=== PATIENT | male | born 1985 ===

== ENCOUNTER 2016-07-24 16:31 | Emergency (ER) | payer OTHER ==
[2016-07-24 16:33] VITALS: BMI 28.0
[2016-07-24 16:37] VITALS: TEMP 98.1
--- NOTE | 2016-07-24 16:46 | ED PDOC ---
Arrival/HPI - General Chief Complaint: Lower Extremity Problem/Injury Time Seen by Provider: 07/24/16 16:35 Historian: Patient - History of Present Illness Narrative History of Present Illness (Text): 07/24/16 16:50 30yr old male presents today with blisters to the bottom of both feet. pt states he is homeless and has been walking around with feet in the same shoes for the past few days and developed painful blisters on the bottom of the feet. pt denies fever/chills. denies numbness, weakness, tingling in the extremity. pt states he has sharp burning pain to the plantar aspect of the feet when we walks. no medications have been taken for pain. no other complaints. Severity Level: 8 (when walking) Past Medical History - Provider Review Nursing Documentation Reviewed: Yes - Travel History Have you recently traveled outside [place] w/in the past 3 mons?: No - Infectious Disease Hx of Infectious Diseases: None - Tetanus Immunization Tetanus Immunization: Unknown - Psychiatric Hx Substance Use: No - Anesthesia Hx Anesthesia: No Family/Social History - Physician Review Nursing Documentation Reviewed: Yes Family/Social History: Unknown Family HX Smoking Status: Heavy Smoker > 10 Cigarettes Daily Hx Alcohol Use: No Hx Substance Use: No Allergies/Home Meds Allergies/Adverse Reactions: Allergies shellfish derived Allergy (Verified 07/24/16 16:33) ANAPHYLAXIS Review of Systems - Review of Systems Constitutional: absent: Fatigue, Fevers Respiratory: absent: SOB, Cough Cardiovascular: absent: Chest Pain, Palpitations Gastrointestinal: absent: Abdominal Pain, Diarrhea, Nausea, Vomiting Genitourinary Male: absent: Dysuria Musculoskeletal: Arthralgias Skin: Other (blisters to plantar aspect of both feet) Psychiatric: absent: Anxiety, Depression Physical Exam Vital Signs Reviewed: Yes Vital Signs Temp Pulse Resp BP Pulse Ox 07/24/16 16:32 98.1 F 100 H 18 129/82 98 Temperature: Afebrile Blood Pressure: Normal Pulse: Tachycardic Respiratory Rate: Normal Appearance: Positive for: Well-Appearing, Non-Toxic, Comfortable Pain Distress: None Mental Status: Positive for: Alert and Oriented X 3 - Systems Exam Head: Present: Atraumatic Mouth: Present: Moist Mucous Membranes Respiratory/Chest: Present: Clear to Auscultation, Good Air Exchange. No: Respiratory Distress, Accessory Muscle Use Cardiovascular: Present: Regular Rate and Rhythm, Normal S1, S2. No: Murmurs Lower Extremity: Present: NORMAL PULSES, Normal ROM, Tenderness (bilateral feet ; there are multiple blisters noted to the plantar aspect of the feet located around the ball of the foot; no surrounding erythema; no edema, sensation and distal pulses intact; cap refill <2. ), Neurovascularly Intact, Capillary Refill < 2 s. No: CALF TENDERNESS, Swelling, Erythema, Deformity Neurological: Present: GCS=15 Skin: Present: Warm, Dry Psychiatric: Present: Alert, Oriented x 3 Medical Decision Making ED Course and Treatment: 07/24/16 16:54 30-year-old male with blisters to the plantar aspect of both feet bilaterally with slight maceration. No signs of infection Toradol given IM for pain Advised applying baby powder frequently and keeping the feet dry. Advise using Lotrimin cream twice daily between the toes. Advised follow-up with the group billing coordinator within the next 2 days. Advised immediate return if symptoms worsen or persist or if new concerning symptoms develop Patient verbalizes understanding of discharge instructions and need for immediate followup. Impression: Blisters, foot, bilaterally motrin every 6 hours as needed for pain lotrimin apply twice daily to areas between toes apply baby powder to help keep area dry follow up with the group billing coordinator within the next 2 days. follow up with the primary care physician within the next 2 days return if symptoms worsen,persist or if new symptoms develop - Medication Orders Current Medication Orders: Ketorolac Tromethamine (Toradol) 60 mg IM STAT STA Stop: 07/24/16 16:43 Disposition/Present on Arrival - Present on Arrival Any Indicators Present on Arrival: No History of DVT/PE: No History of Uncontrolled Diabetes: No Urinary Catheter: No History of Decub. Ulcer: No History Surgical Site Infection Following: None - Disposition Have Diagnosis and Disposition been Completed?: Yes Diagnosis: Blister of foot Disposition: HOME/ ROUTINE Disposition Time: 16:42 Patient Plan: Discharge Condition: GOOD Discharge Instructions (ExitCare): Blister (ED) Additional Instructions: motrin every 6 hours as needed for pain lotrimin apply twice daily to areas between toes apply baby powder to help keep area dry follow up with the group billing coordinator within the next 2 days. follow up with the primary care physician within the next 2 days return if symptoms worsen,persist or if new symptoms develop. Prescriptions: Clotrimazole 1% Cream [Lotrimin 1%] 1 appl TP BID #1 tube Ibuprofen [Motrin] 600 mg PO Q6H PRN #20 tab PRN Reason: pain/fever reduction Referrals: Anabella Sousa DPM [Staff Provider] - Follow up with primary Veronika Leigh DPM [Staff Provider] - Follow up with primary Forms: WORK NOTE
[2016-07-24 17:13] VITALS: BP 128/80; PULSE 98; RESP 17; O2SAT 99
== END 2016-07-24 17:12 | disposition home or self-care (01) ==
LOC: ED 16:31
DX: S90.821A Blister (nonthermal), right foot, initial encounter (principal); S90.822A Blister (nonthermal), left foot, initial encounter; X58.XXXA Exposure to other specified factors, initial encounter; Y93.89 Activity, other specified; Y92.89 Other specified places as the place of occurrence of the external cause
CPT/HCPCS: 96372; 99284; J1885

== ENCOUNTER 2016-08-10 14:28 | Emergency (ER) | payer OTHER ==
[2016-08-10 14:29] VITALS: BMI 28.0
[2016-08-10 14:55] VITALS: RESP 16
--- NOTE | 2016-08-10 15:05 | ED PDOC ---
Arrival/HPI - General Chief Complaint: Chest Pain Time Seen by Provider: 08/10/16 14:50 Historian: Patient - History of Present Illness Narrative History of Present Illness (Text): 08/10/16 15:06 A 30 year old male, who denies any past medical history, presents to the emergency department complaining of chest pain for that past 3- 4 days. Patient notes pain is more on the right side and comes and goes, lasting about 2 minutes. Pain is worse when stressed out. Patient currently denies having any chest pain. Patient reports back pain, shortness of breath and some fatigue but denies any other complaints at this time. Denies any recent travels, trauma or drug use. Time/Duration: < week Symptom Onset: Sudden Symptom Course: Unchanged Context: Home Past Medical History - Provider Review Nursing Documentation Reviewed: Yes - Infectious Disease Hx of Infectious Diseases: None - Tetanus Immunization Tetanus Immunization: Unknown - Cardiac Hx Cardiac Disorders: No - Pulmonary Hx Respiratory Disorders: No - Neurological Hx Neurological Disorder: No - HEENT Hx HEENT Disorder: No - Renal Hx Renal Disorder: No - Endocrine/Metabolic Hx Endocrine Disorders: No - Hematological/Oncological Hx Blood Disorders: No - Integumentary Hx Dermatological Disorder: No - Musculoskeletal/Rheumatological Hx Musculoskeletal Disorders: Yes Hx Back Pain: Yes - Gastrointestinal Hx Gastrointestinal Disorders: No - Genitourinary/Gynecological Hx Genitourinary Disorders: No - Psychiatric Hx Psychophysiologic Disorder: No Hx Substance Use: No - Anesthesia Hx Anesthesia: No Family/Social History - Physician Review Nursing Documentation Reviewed: Yes Family/Social History: No Known Family HX Smoking Status: Heavy Smoker > 10 Cigarettes Daily Hx Alcohol Use: No Hx Substance Use: No Allergies/Home Meds Allergies/Adverse Reactions: Allergies shellfish derived Allergy (Verified 08/10/16 14:31) ANAPHYLAXIS Home Medications: Home Meds Medication Instructions Recorded Confirmed No Known Home Med 08/10/16 08/10/16 Review of Systems - Physician Review All systems were reviewed & negative as marked: Yes - Review of Systems Constitutional: Fatigue Respiratory: SOB Cardiovascular: Chest Pain Musculoskeletal: Back Pain Physical Exam Vital Signs Reviewed: Yes Vital Signs Temp Pulse Resp BP Pulse Ox 08/10/16 16:57 98 F 76 16 106/58 L 98 08/10/16 14:37 98.4 F 105 H 16 123/67 99 Temperature: Afebrile Blood Pressure: Normal Pulse: Tachycardic Respiratory Rate: Normal Appearance: Positive for: Well-Appearing, Non-Toxic, Comfortable Pain Distress: None Mental Status: Positive for: Alert and Oriented X 3 - Systems Exam Head: Present: Atraumatic, Normocephalic Pupils: Present: PERRL Extroacular Muscles: Present: EOMI Conjunctiva: Present: Normal Mouth: Present: Moist Mucous Membranes Neck: Present: Normal Range of Motion Respiratory/Chest: Present: Clear to Auscultation, Good Air Exchange, Other ( reproducible pain to palpation of anterior chest wall). No: Respiratory Distress, Accessory Muscle Use Cardiovascular: Present: Tachycardic. No: Murmurs Abdomen: Present: Normal Bowel Sounds. No: Tenderness, Distention, Peritoneal Signs Back: Present: Normal Inspection Upper Extremity: Present: Normal Inspection. No: Cyanosis, Edema Lower Extremity: Present: Normal Inspection. No: Edema Neurological: Present: GCS=15, CN II-XII Intact, Speech Normal Skin: Present: Warm, Dry, Normal Color. No: Rashes Psychiatric: Present: Alert, Oriented x 3, Normal Insight, Normal Concentration Medical Decision Making ED Course and Treatment: 08/10/16 15:03 EKG: Ordered, reviewed, and independently interpreted the EKG. Rate : 93 BPM Rhythm : NSR Interpretation : Normal axis, Normal intervals, No acute ischemia Comparison : No previous EKG for comparison. chest xray: Creator : Noelle Mckinnon MD 08/10/2016 15:59 FINDINGS: LUNGS: No focal consolidation. Please note that chest x-ray has limited sensitivity for the detection of pulmonary masses. PLEURA: No significant pleural effusion identified. No definite pneumothorax . CARDIOVASCULAR: The cardiomediastinal silhouette appears within normal limits of size. OSSEOUS STRUCTURES: No acute osseous abnormality identified. VISUALIZED UPPER ABDOMEN: Unremarkable. IMPRESSION: No focal consolidation, significant pleural effusion, or definite pneumothorax identified. - Lab Interpretations Lab Results: 08/10/16 14:45 08/10/16 14:45 Lab Results 08/10/16 14:45: Sodium 141, Potassium 3.9, Chloride 106, Carbon Dioxide 28, Anion Gap 11, BUN 12, Creatinine 0.8, Est GFR ( Amer) > 60, Est GFR (Non- Af Amer) > 60, Random Glucose 82, Calcium 9.2, Total Bilirubin 0.4, AST 45, ALT 33, Alkaline Phosphatase 55, Troponin I < 0.01, Total Protein 7.2, Albumin 4.0, Globulin 3.2, Albumin/Globulin Ratio 1.3 08/10/16 14:45: WBC 8.4, RBC 5.39, Hgb 11.1 L, Hct 33.6 L, MCV 62.3 L, MCH 20.6 L, MCHC 33.0, RDW 16.2 H, Plt Count 260, MPV 9.6, Gran % 67.9, Lymph % (Auto) 22.8, [place] % (Auto) 7.0 H, Eos % (Auto) 1.9, Baso % (Auto) 0.4, Gran # 5.69, Lymph # 1.9, [place] # 0.6, Eos # 0.2, Baso # 0.03 I have reviewed the lab results: Yes - RAD Interpretation Radiology Orders: 08/10/16 14:52 CHEST TWO VIEWS (PA/LAT) [RAD] Stat - EKG Interpretation Interpreted by ED Physician: Yes Type: 12 lead EKG - Medication Orders Current Medication Orders: Discontinued Medications Ketorolac Tromethamine (Toradol) 10 mg IVP STAT STA Stop: 08/10/16 14:52 Last Admin: 08/10/16 15:24 Dose: 10 mg - Scribe Statement The provider has reviewed the documentation as recorded by the [place] [facility] Provider Scribe Attestation: All medical record entries made by the Marvelibmaude were at my direction and personally dictated by me. I have reviewed the chart and agree that the record accurately reflects my personal performance of the history, physical exam, medical decision making, and the department course for this patient. I have also personally directed, reviewed, and agree with the discharge instructions and disposition. Disposition/Present on Arrival - Present on Arrival Any Indicators Present on Arrival: No History of DVT/PE: No History of Uncontrolled Diabetes: No Urinary Catheter: No History of Decub. Ulcer: No History Surgical Site Infection Following: None - Disposition Have Diagnosis and Disposition been Completed?: Yes Diagnosis: Chest pain Disposition: HOME/ ROUTINE Disposition Time: 16:43 Condition: STABLE Discharge Instructions (ExitCare): Chest Pain (ED) Additional Instructions: Please follow up with your doctor. Return to the ER for any worsening symptoms or for any other concerns. Referrals: [facility] [place] [Outside] - Follow up with primary
[2016-08-10 15:17] LABS: ADD MANUAL DIFF? NO
[2016-08-10 15:20] LABS: BASO # 0.03 K/mm3 (0.0-2.0); BASO % 0.4 % (0.0-3.0); EOS # 0.2 (0.0-0.7); EOS % 1.9 % (1.5-5.0); GRAN # 5.69 (1.4-6.5); GRAN % 67.9 % (50.0-68.0); HEMATOCRIT 33.6 % (42.0-52.0); LYMPH # 1.9 (1.2-3.4); LYMPH % 22.8 % (22.0-35.0); MEAN CELL VOLUME 62.3 fL (80.0-105.0); MEAN CORPUSCULAR HEMOGLOBIN 20.6 pg (25.0-35.0); MEAN PLATELET VOLUME 9.6 fl (7.0-11.0); MONO # 0.6 (0.1-0.6); PLATELET COUNT 260 10^3/uL (120.0-450.0); RED CELL DISTRIBUTION WIDTH 16.2 % (11.5-14.5); WHITE BLOOD COUNT 8.4 10^3/ul (4.5-11.0)
[2016-08-10 15:45] LABS: ALB/GLOB RATIO 1.3 (1.1-1.8); ALKALINE PHOSPHATASE 55 U/L (38-133); ALT/SGPT 33 U/L (7-56); AST/SGOT 45 U/L (15-59); BILIRUBIN,TOTAL 0.4 mg/dL (0.2-1.3); BLOOD UREA NITROGEN 12 mg/dL (7-21); CALCIUM 9.2 mg/dL (8.4-10.5); CARBON DIOXIDE 28 mmol/L (21-33); CHLORIDE 106 mmol/L (98-107); GFR AFRICAN-AMERICAN > 60; GLUCOSE,RANDOM 82 mg/dL (70-110); POTASSIUM 3.9 mmol/L (3.6-5.0); SODIUM 141 mmol/L (132-148); TOTAL PROTEIN 7.2 g/dL (5.8-8.3)
--- NOTE | 2016-08-10 15:57 | RAD ---
HISTORY: cp COMPARISON: None available. TECHNIQUE: Chest PA and lateral FINDINGS: LUNGS: No focal consolidation. Please note that chest x-ray has limited sensitivity for the detection of pulmonary masses. PLEURA: No significant pleural effusion identified. No definite pneumothorax . CARDIOVASCULAR: The cardiomediastinal silhouette appears within normal limits of size. OSSEOUS STRUCTURES: No acute osseous abnormality identified. VISUALIZED UPPER ABDOMEN: Unremarkable. OTHER FINDINGS: None. IMPRESSION: No focal consolidation, significant pleural effusion, or definite pneumothorax identified.
[2016-08-10 16:13] LABS: TROPONIN I < 0.01 ng/mL
[2016-08-10 16:58] VITALS: BP 106/58; PULSE 76; TEMP 98; O2SAT 98
--- NOTE | 2016-08-12 00:16 | CARD ---
APPROVED REPORT EKG Measurement Heart [id number] <Conclusion> Normal sinus rhythm Possible Left atrial enlargement Borderline ECG
== END 2016-08-10 17:01 | disposition home or self-care (01) ==
LOC: ED 14:28
DX: R07.9 Chest pain, unspecified (principal)
CPT/HCPCS: 71020; 80053; 84484; 85025; 93005; 96374; 99283; J1885

== ENCOUNTER 2016-08-19 08:35 | Emergency (ER) | payer OTHER ==
[2016-08-19 08:35] VITALS: BMI 28.0
[2016-08-19 08:51] VITALS: TEMP 98.2; O2SAT 100
--- NOTE | 2016-08-19 09:23 | ED PDOC ---
Arrival/HPI - General Chief Complaint: Back Pain Time Seen by Provider: 08/19/16 09:05 Historian: Patient - History of Present Illness Narrative History of Present Illness (Text): 08/19/16 09:18 30yo male with history of chronic back pain present with complaint of crampy upper back pain. Notes that is the same type of back pain he have had for years from his previous job. states his recent job requires standing most of the time and he noticed worsening of the pain. States he was seeing Orthopedist in the past, but have not seen any recently. He has been taking OTC Aleve without relieve. Denies trauma, focal weakness, urinary/fecal incontinence, saddle anesthesia, abdominal pain, any other complaint. Past Medical History - Provider Review Nursing Documentation Reviewed: Yes - Infectious Disease Hx of Infectious Diseases: None - Tetanus Immunization Tetanus Immunization: Unknown - Cardiac Hx Cardiac Disorders: No - Pulmonary Hx Respiratory Disorders: No - Neurological Hx Neurological Disorder: No - HEENT Hx HEENT Disorder: No - Renal Hx Renal Disorder: No - Endocrine/Metabolic Hx Endocrine Disorders: No - Hematological/Oncological Hx Blood Disorders: No - Integumentary Hx Dermatological Disorder: No - Musculoskeletal/Rheumatological Hx Musculoskeletal Disorders: Yes Hx Back Pain: Yes - Gastrointestinal Hx Gastrointestinal Disorders: No - Genitourinary/Gynecological Hx Genitourinary Disorders: No - Psychiatric Hx Psychophysiologic Disorder: Yes Hx Depression: Yes Hx Substance Use: No - Anesthesia Hx Anesthesia: No Family/Social History - Physician Review Nursing Documentation Reviewed: Yes Family/Social History: Unknown Family HX Smoking Status: Heavy Smoker > 10 Cigarettes Daily Hx Alcohol Use: No Hx Substance Use: No Allergies/Home Meds Allergies/Adverse Reactions: Allergies shellfish derived Allergy (Verified 08/19/16 08:50) ANAPHYLAXIS Review of Systems - Physician Review All systems were reviewed & negative as marked: Yes - Review of Systems Constitutional: Normal Eyes: Normal ENT: Normal Respiratory: Normal Cardiovascular: Normal Gastrointestinal: Normal Genitourinary Male: Normal Musculoskeletal: Back Pain Skin: Normal Neurological: Normal Endocrine: Normal Hemo/Lymphatic: Normal Psychiatric: Normal Physical Exam Vital Signs Reviewed: Yes Vital Signs Temp Pulse Resp BP Pulse Ox 08/19/16 08:50 98.2 F 90 16 118/76 100 Temperature: Afebrile Blood Pressure: Normal Pulse: Regular Respiratory Rate: Normal Appearance: Positive for: Well-Appearing, Non-Toxic, Comfortable Pain Distress: None Mental Status: Positive for: Alert and Oriented X 3 - Systems Exam Head: Present: Atraumatic, Normocephalic Pupils: Present: PERRL Extroacular Muscles: Present: EOMI Conjunctiva: Present: Normal Mouth: Present: Moist Mucous Membranes Neck: Present: Normal Range of Motion Respiratory/Chest: Present: Clear to Auscultation, Good Air Exchange. No: Respiratory Distress, Accessory Muscle Use Cardiovascular: Present: Regular Rate and Rhythm, Normal S1, S2. No: Murmurs Abdomen: Present: Normal Bowel Sounds. No: Tenderness, Distention, Peritoneal Signs Back: Present: Midline Tenderness (Upper mid back), Paraspinal Tenderness ( Parathoracic area), Pain with Leg Raise (LEft leg) Upper Extremity: Present: Normal Inspection. No: Cyanosis, Edema Lower Extremity: Present: Normal Inspection. No: Edema Neurological: Present: GCS=15, CN II-XII Intact, Speech Normal Skin: Present: Warm, Dry, Normal Color. No: Rashes Psychiatric: Present: Alert, Oriented x 3, Normal Insight, Normal Concentration Medical Decision Making ED Course and Treatment: 08/19/16 09:24 PT in ED for acute on chronic crampy back pain. He was neurological intact. Ambulatory with a steady gait. Toradol and Valium was ordered Will re evaluate 08/19/16 09:47 On re evaluation pt states he feels better. He will be DC home with Naprosyn and flexeril. Referred to ortho. TRT ED for any new or worsening symptoms. - Medication Orders Current Medication Orders: Discontinued Medications Cyclobenzaprine HCl (Flexeril) 5 mg PO STAT STA Stop: 08/19/16 09:18 Ketorolac Tromethamine (Toradol) 60 mg IM STAT STA Stop: 08/19/16 09:18 Disposition/Present on Arrival - Present on Arrival Any Indicators Present on Arrival: No History of DVT/PE: No History of Uncontrolled Diabetes: No Urinary Catheter: No History of Decub. Ulcer: No History Surgical Site Infection Following: None - Disposition Have Diagnosis and Disposition been Completed?: Yes Diagnosis: Back pain Disposition: HOME/ ROUTINE Disposition Time: 09:50 Patient Plan: Discharge Patient Problems: Current Active Problems Problem Status Onset Back pain Acute Condition: STABLE Discharge Instructions (ExitCare): Chronic Back Pain (ED) Additional Instructions: Follow up with your Doctor/Orthopedist Return to ED for any new or worsening symptoms Prescriptions: Cyclobenzaprine [Cyclobenzaprine HCl] 10 mg PO TID #12 tab Naproxen [Naprosyn] 500 mg PO BID #20 tablet Referrals: PCP,NO [Primary Care Provider] - Follow up with primary Forms: WORK NOTE
[2016-08-19 10:11] VITALS: BP 115/84; PULSE 84; RESP 17
== END 2016-08-19 10:14 | disposition home or self-care (01) ==
LOC: ED 08:35
DX: M54.9 Dorsalgia, unspecified (principal)
CPT/HCPCS: 96372; 99282; J1885

== ENCOUNTER 2016-09-17 09:18 | Emergency (ER) | payer OTHER ==
[2016-09-17 09:19] VITALS: BMI 28.0
[2016-09-17 09:23] VITALS: RESP 18
--- NOTE | 2016-09-17 11:10 | CT ---
PROCEDURE: CT HEAD WITHOUT CONTRAST. HISTORY: head injury s/p syncope r/o fx r/o ich COMPARISON: None available. TECHNIQUE: Axial computed tomography images were obtained through the head/brain without intravenous contrast. Radiation dose: Total exam DLP = 724 mGy-cm. This CT exam was performed using one or more of the following dose reduction techniques: Automated exposure control, adjustment of the mA and/or kV according to patient size, and/or use of iterative reconstruction technique. FINDINGS: HEMORRHAGE: No intracranial hemorrhage. BRAIN: No mass effect or edema. No atrophy or chronic microvascular ischemic changes. VENTRICLES: Unremarkable. No hydrocephalus. CALVARIUM: Unremarkable. PARANASAL SINUSES: Large left maxillary sinus retention cyst nearly completely opacifying the left maxillary sinus. No sinus wall remodeling or expansion suggested MASTOID AIR CELLS: Unremarkable as visualized. No inflammatory changes. OTHER FINDINGS: None. IMPRESSION: No calvarial fracture. No intracranial hemorrhage. Or mass effect. Incidentally noted is a large left maxillary sinus retention cyst at least 3.5 cm
[2016-09-17 11:18] LABS: URINE BILIRUBIN NEGATIVE (NEGATIVE); URINE BLOOD NEGATIVE (NEGATIVE); URINE GLUCOSE (UA) NEGATIVE (NEGATIVE); URINE LEUKOCYTE ESTERASE NEGATIVE Leu/uL (NEGATIVE); URINE NITRATE NEGATIVE (NEGATIVE); URINE PROTEIN NEGATIVE mg/dL (<30 mg/dL); URINE UROBILINOGEN 0.2 E.U./dL (<1 E.U./dL)
[2016-09-17 11:19] LABS: URINE APPEARANCE CLEAR (CLEAR); URINE COLOR STRAW (YELLOW)
[2016-09-17 11:21] LABS: BASO # 0.03 K/mm3 (0.0-2.0); BASO % 0.3 % (0.0-3.0); EOS % 0.3 % (1.5-5.0); GRAN # 8.31 (1.4-6.5); GRAN % 76.7 % (50.0-68.0); HEMOGLOBIN 12.5 gm/dL (14.0-18.0); LYMPH % 18.1 % (22.0-35.0); MEAN CELL VOLUME 62.2 fL (80.0-105.0); MEAN CORPUSCULAR HEMOGLOBIN 20.9 pg (25.0-35.0); MEAN CORPUSCULAR HGB CONC 33.6 g/dl (31.0-37.0); MEAN PLATELET VOLUME 9.3 fl (7.0-11.0); MONO # 0.5 (0.1-0.6); MONO % 4.6 % (1.0-6.0); PLATELET COUNT 270 10^3/uL (120.0-450.0); RBC 5.98 10^6/uL (3.5-6.1); RED CELL DISTRIBUTION WIDTH 15.8 % (11.5-14.5); WHITE BLOOD COUNT 10.8 10^3/ul (4.5-11.0)
--- NOTE | 2016-09-17 11:24 | ED PDOC ---
Arrival/HPI - General Chief Complaint: Syncope Time Seen by Provider: 09/17/16 09:42 Historian: Patient, EMS - History of Present Illness Narrative History of Present Illness (Text): 09/17/16 10:40 Jaspreet Porter is a 30 year old male, who is brought in by EMS after experiencing a syncopal episode, prior to arrival at his job. Patient states that before the loss of consciousness, he felt dizziness, lightheadedness, and chest discomfort. He reports that once he woke up he believes he hurt his head and felt neck pain. Patient notes that he has not been eating sufficient lately because he cannot afford food. Patient also reports that he currently feels weak , but denies current chest pain, shortness of breath, headache, nausea, vomiting , diarrhea, fever, chills, cough, visual changes, tongue biting, or other complaints. Time/Duration: Prior to Arrival Symptom Onset: Sudden Symptom Course: Unchanged Activities at Onset: Light Modifying Factors (Text): None Context: Work Associated Symptoms (Text): prior to syncopal episode patient felt dizziness, lightheadedness, and chest discomfort. Currently he feels weak Past Medical History - Provider Review Nursing Documentation Reviewed: Yes - Infectious Disease Hx of Infectious Diseases: None - Tetanus Immunization Tetanus Immunization: Unknown - Cardiac Hx Cardiac Disorders: No - Pulmonary Hx Respiratory Disorders: No - Neurological Hx Neurological Disorder: Yes Hx Syncope: Yes - HEENT Hx HEENT Disorder: No - Renal Hx Renal Disorder: No - Endocrine/Metabolic Hx Endocrine Disorders: No - Hematological/Oncological Hx Blood Disorders: No - Integumentary Hx Dermatological Disorder: No - Musculoskeletal/Rheumatological Hx Musculoskeletal Disorders: Yes Hx Back Pain: Yes - Gastrointestinal Hx Gastrointestinal Disorders: No - Genitourinary/Gynecological Hx Genitourinary Disorders: No - Psychiatric Hx Psychophysiologic Disorder: Yes Hx Depression: Yes Hx Substance Use: No - Anesthesia Hx Anesthesia: No Family/Social History - Physician Review Nursing Documentation Reviewed: Yes Family/Social History: Unknown Family HX Smoking Status: Heavy Smoker > 10 Cigarettes Daily Hx Alcohol Use: Yes Frequency of alcohol use: Socially Hx Substance Use: No Allergies/Home Meds Allergies/Adverse Reactions: Allergies shellfish derived Allergy (Verified 09/17/16 09:53) ANAPHYLAXIS Home Medications: Home Meds Medication Instructions Recorded Confirmed No Known Home Med 09/17/16 09/17/16 Review of Systems - Physician Review All systems were reviewed & negative as marked: Yes - Review of Systems Constitutional: absent: Fevers Eyes: absent: Vision Changes Respiratory: SOB. absent: Cough Cardiovascular: Chest Pain (chest discomfort) Gastrointestinal: absent: Abdominal Pain, Diarrhea, Nausea, Vomiting Musculoskeletal: Neck Pain Neurological: Dizziness, Other (syncopal episode) Physical Exam Vital Signs Temp Pulse Resp BP Pulse Ox 09/17/16 14:42 98.4 F 72 18 105/62 100 09/17/16 12:22 98.2 F 86 18 129/75 98 09/17/16 11:00 98.2 F 77 18 128/72 97 09/17/16 09:19 98.3 F 90 18 142/70 100 Temperature: Afebrile Blood Pressure: Normal Pulse: Regular Respiratory Rate: Normal Appearance: Positive for: Well-Appearing, Non-Toxic, Comfortable Pain Distress: None Mental Status: Positive for: Alert and Oriented X 3 Finger Stick Blood Glucose: 92 - Systems Exam Head: Present: Atraumatic, Normocephalic Pupils: Present: PERRL Extroacular Muscles: Present: EOMI Conjunctiva: Present: Normal Mouth: Present: Moist Mucous Membranes Neck: Present: Normal Range of Motion, Other (left side tenderness) Respiratory/Chest: Present: Clear to Auscultation, Good Air Exchange. No: Respiratory Distress, Accessory Muscle Use Cardiovascular: Present: Regular Rate and Rhythm, Normal S1, S2. No: Murmurs Abdomen: Present: Normal Bowel Sounds. No: Tenderness, Distention, Peritoneal Signs Back: Present: Normal Inspection Upper Extremity: Present: Normal Inspection. No: Cyanosis, Edema Lower Extremity: Present: Normal Inspection. No: Edema Neurological: Present: GCS=15, CN II-XII Intact, Speech Normal Skin: Present: Warm, Dry, Normal Color. No: Rashes Psychiatric: Present: Alert, Oriented x 3, Normal Insight, Normal Concentration Medical Decision Making ED Course and Treatment: 09/17/16 11:30 Impression: Differential Diagnosis included but are not limited to: syncopal episode secondary to dehydration/malnutrition vs. arrihythmia vs. neurogenic Plan: -- EKG -- Chest X-ray -- CT Cervical spine without contrast -- CT Head without contrast -- Labs -- Urinalysis -- Reassess and disposition Progress Notes: EKG: Ordered, reviewed, and independently interpreted the EKG. Rate : 72 BPM Rhythm : NSR Interpretation : No ST-segment elevations or depressions, no T-wave inversions, normal intervals. Comparison : No previous EKG for comparison. 09/17/16 11:[address]: Creator : Alexandra Chen V. HEMORRHAGE: No intracranial hemorrhage. BRAIN:No mass effect or edema. No atrophy or chronic microvascular ischemic changes. VENTRICLES: Unremarkable. No hydrocephalus. CALVARIUM: Unremarkable. PARANASAL SINUSES: Large left maxillary sinus retention cyst nearly completely opacifying the left maxillary sinus. No sinus wall remodeling or expansion suggested MASTOID AIR CELLS: Unremarkable as visualized. No inflammatory changes. OTHER FINDINGS: None. IMPRESSION: No calvarial fracture. No intracranial hemorrhage. Or mass effect. Incidentally noted is a large left maxillary sinus retention cyst at least 3.5 cm 09/17/16 12:[address]: Creator : Noelle Mckinnon MD Findings: Straightening of the normal cervical lordosis may be related to muscle spasm or positioning. There is no evidence of acute fracture or subluxation. There is preserved alignment, vertebral body height, intervertebral disc spaces. The prevertebral soft tissues and spinolaminar lines appear intact. The lateral masses are preserved. The dens tip is intact. There is proper alignment of the lateral masses of C1 with the C2 vertebral body. Included portions of the thyroid gland appear unremarkable. Included portions of lung apices appear clear. Impression: Straightening of the normal cervical lordosis may be related to muscle spasm or positioning. No evidence of acute fracture or subluxation. 09/17/16 13:20 Chest X-ray: Creator : Aniket Guadalupe MD COMPARISON:08/10/2016 FINDINGS: LUNGS: No active pulmonary disease. PLEURA: No significant pleural effusion identified, no pneumothorax apparent. CARDIOVASCULAR: Normal. OSSEOUS STRUCTURES: No significant abnormalities. VISUALIZED UPPER ABDOMEN: Normal. OTHER FINDINGS: None. IMPRESSION: No active disease. Patient felt much better after good hydration and good given. His CTs were negative for fracture. CXR negative. Labs reviewed. Patient is tolerating PO fluids well in ED. 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 He will make sure to follow up as an outpatient. - Lab Interpretations Lab Results: 09/17/16 10:50 09/17/16 10:50 Lab Results 09/17/16 10:50: Urine Opiates Screen Negative, Urine Methadone Screen Negative, Ur Barbiturates Screen Negative, Ur Phencyclidine Scrn Negative, Ur Amphetamines Screen Negative, U Benzodiazepines Scrn Negative, U Oth Cocaine Metabols Negative, U Cannabinoids Screen Negative 09/17/16 10:50: Sodium 143, Potassium 4.0, Chloride 106, Carbon Dioxide 28, Anion Gap 13, BUN 9, Creatinine 0.7, Est GFR ( Amer) > 60, Est GFR (Non- Af Amer) > 60, Random Glucose 91, Calcium 9.7, Magnesium 2.1, Total Bilirubin 0.7, AST 32, ALT 25, Alkaline Phosphatase 67, Lactate Dehydrogenase 411, Total Creatine Kinase 116, Troponin I < 0.01, Total Protein 7.9, Albumin 4.4, Globulin 3.4, Albumin/Globulin Ratio 1.3 09/17/16 10:50: Urine Color Straw, Urine Appearance Clear, Urine pH 7.0, Ur Specific [place] 1.010, Urine Protein Negative, Urine Glucose (UA) Negative, Urine Ketones Negative, Urine Blood Negative, Urine Nitrate Negative, Urine Bilirubin Negative, Urine Urobilinogen 0.2, Ur Leukocyte Esterase Negative 09/17/16 10:50: PT 11.1, INR 1.03, APTT 27.5, D-Dimer, Quantitative 0.19 09/17/16 10:50: WBC 10.8 D, RBC 5.98, Hgb 12.5 L, Hct 37.2 L, MCV 62.2 L, MCH 20.9 L, MCHC 33.6, RDW 15.8 H, Plt Count 270, MPV 9.3, Gran % 76.7 H, Lymph % ( Auto) 18.1 L, Tillman % (Auto) 4.6, Eos % (Auto) 0.3 L, Baso % (Auto) 0.3, Gran # 8.31 H, Lymph # 2.0, Tillman # 0.5, Eos # 0.0, Baso # 0.03 09/17/16 10:48: POC Glucose (mg/dL) 96 I have reviewed the lab results: Yes - RAD Interpretation Radiology Orders: 09/17/16 10:16 CERVICAL SPINE W/O CONTRAST [CT] Stat HEAD W/O CONTRAST [CT] Stat CHEST PORTABLE [RAD] Stat Leather Worker: Radiologist - EKG Interpretation Interpreted by ED Physician: Yes Type: 12 lead EKG - Scribe Statement The provider has reviewed the documentation as recorded by the Scribe 09/17/2016 Abiola Viera Provider Scribe Attestation: All medical record entries made by the Scribe were at my direction and personally dictated by me. I have reviewed the chart and agree that the record accurately reflects my personal performance of the history, physical exam, medical decision making, and the department course for this patient. I have also personally directed, reviewed, and agree with the discharge instructions and disposition. Disposition/Present on Arrival - Present on Arrival Any Indicators Present on Arrival: No History of DVT/PE: No History of Uncontrolled Diabetes: No Urinary Catheter: No History of Decub. Ulcer: No History Surgical Site Infection Following: None - Disposition Have Diagnosis and Disposition been Completed?: Yes Diagnosis: Head injury, Syncope Disposition: HOME/ ROUTINE Disposition Time: 15:14 Patient Plan: Discharge Condition: IMPROVED Discharge Instructions (ExitCare): Syncope (ED) Additional Instructions: Mr Porter, thank you for letting us take care of you today. Your provider was Dr. Joseph. You were treated for Syncope, Head Injury. The emergency medical care you received today was directed at your acute symptoms. If you were prescribed any medication, please fill it and take as directed. It may take several days for your symptoms to resolve. Return to the Emergency Department if your symptoms worsen, do not improve, or if you have any other problems. Please contact your doctor or call one of the physicians/clinics you have been referred to that are listed on the Patient Visit Information form that is included in your discharge packet. Bring any paperwork you were given at discharge with you along with any medications you are taking to your follow up visit. Our treatment cannot replace ongoing medical care by a primary care provider (PCP) outside of the emergency department. Thank you for allowing the [facility] team to be part of your care today. If you had an X-Ray or CT scan: A Radiologist will review the ED reading if any change in treatment is needed we will contact you. If you had a blood, urine, or wound culture: It will take several days for the results, if any change in treatment is needed we will contact you. If you had an STI test: It will take 48 hours for the results. Please call after 1 week if you have not heard back. Referrals: Antwan Warren [Outside] - Follow up with primary [facility] [place]] - Follow up with primary Forms: Antwan Davis (Georgian)
[2016-09-17 11:31] LABS: ALB/GLOB RATIO 1.3 (1.1-1.8); ALBUMIN 4.4 g/dL (3.0-4.8); ALT/SGPT 25 U/L (7-56); AST/SGOT 32 U/L (15-59); BLOOD UREA NITROGEN 9 mg/dL (7-21); CALCIUM 9.7 mg/dL (8.4-10.5); GFR AFRICAN-AMERICAN > 60; GFR NON-AFRICAN AMERICAN > 60; MAGNESIUM 2.1 mg/dL (1.7-2.2)
[2016-09-17 11:37] LABS: INR 1.03 (0.93-1.08); PARTIAL THROMBOPLASTIN TIME 27.5 Seconds (23.7-30.8); PROTHROMBIN TIME 11.1 Seconds (9.9-11.8)
[2016-09-17 11:38] LABS: BARBITURATES, UR NEGATIVE (NEGATIVE); BENZODIAZEPINES, UR NEGATIVE (NEGATIVE); D DIMER 0.19 mg/L FEU (0-0.50); OPIATES, UR NEGATIVE (NEGATIVE); PHENCYCLIDINE, UR NEGATIVE (NEGATIVE)
[2016-09-17 11:46] LABS: TROPONIN I < 0.01 ng/mL
--- NOTE | 2016-09-17 12:32 | CT ---
CT cervical spine without IV contrast Indication: Fall, rule out fracture Comparison: None available Technique: Axial computed tomography images were obtained of the cervical spine without the use of intravenous contrast. Coronal and sagittal reformatted images were created and reviewed. This CT exam was performed using 1 or more of the falling dose reduction techniques: Automated exposure control, adjustment of the MAA and/or kV according to patient size, and/or use of iterative reconstruction technique. Radiation dose: Total exam DLP = 524.80 mGy-cm. Findings: Straightening of the normal cervical lordosis may be related to muscle spasm or positioning. There is no evidence of acute fracture or subluxation. There is preserved alignment, vertebral body height, intervertebral disc spaces. The prevertebral soft tissues and spinolaminar lines appear intact. The lateral masses are preserved. The dens tip is intact. There is proper alignment of the lateral masses of C1 with the C2 vertebral body. Included portions of the thyroid gland appear unremarkable. Included portions of lung apices appear clear. Impression: Straightening of the normal cervical lordosis may be related to muscle spasm or positioning. No evidence of acute fracture or subluxation.
--- NOTE | 2016-09-17 13:17 | RAD ---
HISTORY: syncope COMPARISON: 08/10/2016 FINDINGS: LUNGS: No active pulmonary disease. PLEURA: No significant pleural effusion identified, no pneumothorax apparent. CARDIOVASCULAR: Normal. OSSEOUS STRUCTURES: No significant abnormalities. VISUALIZED UPPER ABDOMEN: Normal. OTHER FINDINGS: None. IMPRESSION: No active disease.
[2016-09-17 14:42] VITALS: BP 105/62; PULSE 72; TEMP 98.4; O2SAT 100
--- NOTE | 2016-09-17 17:27 | CARD ---
APPROVED REPORT EKG Measurement Heart [id number] <Conclusion> Normal sinus rhythm Normal ECG
== END 2016-09-17 15:13 | disposition home or self-care (01) ==
LOC: ED 09:18
DX: R55 Syncope and collapse (principal); S09.90XA Unspecified injury of head, initial encounter; X58.XXXA Exposure to other specified factors, initial encounter; Y99.0 Civilian activity done for income or pay
CPT/HCPCS: 70450; 71010; 72125; 80053; 81003; 82550; 82948; 83615; 83735; 84484; 85025; 85378; 85610; 85730; 93005; 99285; G0480